=== PATIENT | male | born 2000 | race Caucasian/White ===

== ENCOUNTER 2024-11-17 14:39 | Outpatient (OUT) | payer OTHER, SELFPAY ==
--- NOTE | 2024-11-17 14:49 | US_ITS ---
The [address] [address] Patient Name: GAUTAM CUMMINGS MRN: [id number] date: 2000 Sex: M Assigned Patient Location: [place] Current Patient Location: Accession/Order Number: [id number] Exam Date: 11/18/2024 08:27 Report Date: 11/18/2024 08:44 At the request of: GEMA FLYNN Procedure: US thyroid Thyroid ultrasound Reason for exam: Thyroid nodule follow-up Comparison: Thyroid ultrasound 10/21/2021 Technique: Grayscale and color Doppler images of the thyroid gland were obtained. Findings: The right lobe measures 6.0 x 3.9 x 4.4 cm. The left lobe measures 4.9 x 1.8 x 1.1 cm. The isthmus measures 2 mm. No hyperemia seen on color Doppler imaging. A solid/cystic nodule is once again demonstrated involving the mid aspect of the right lobe measuring 42 x 35 x 42 mm. Findings unchanged compared to the prior study. No additional new nodule is seen. US/US thyroid Impression: Stable solid/cystic nodule mid aspect of the right lobe measuring 42 x 35 x 42. This has previously been biopsied in 2021 per technologist note. No new nodules are identified. Impression dictated by: Adi Arceo Jr., D.O. 11/18/2024 8:44 AM Dictation Location: [place] [address] Electronically authenticated by: [id number] Y Date: 11/18/2024 08:44
== END 2024-11-17 14:40 | disposition home or self-care (01) ==
LOC: US 14:42
PROVIDERS: PCP Nurse Practitioner; Visit Provider Nurse Practitioner
DX: E04.9 Nontoxic goiter, unspecified (principal)
CPT/HCPCS: 76536